=== PATIENT | female | born 1940 | race Caucasian/White ===

== ENCOUNTER → 2017-01-17 | Outpatient (CLI) | payer MEDICARE ==
--- NOTE | 2017-01-17 09:31 | RAD ---
Indication breast malignancy. Protocol study. Frontal and lateral views of the chest were obtained. No prior imaging of the chest is available. The heart, pulmonary vessels and mediastinum appear normal. The lungs are clear. There is no pleural fluid or pneumothorax. Changes of a left mastectomy are noted. Bony structures appear grossly intact. IMPRESSION: No acute or focal process seen in the chest
--- NOTE | 2017-01-17 14:02 | RAD ---
Indication history of breast malignancy. Left ankle pain for several months associated with an injury. Whole body static images were obtained. 25 mCi of technetium labeled MDP was administered. No prior bone scan imaging is available. No extremity plain films are available. There is increased activity in the hands which is likely degenerative. Similarly increased activity is seen in the lower lumbar spine likely degenerative. Increased activity in the left knee medially also is likely degenerative. There are foci of increased activity in the left foot and ankle. These would be compatible with the history of trauma provided and may be sales representative meats of fractures or bone contusions. Correlation with plain films advised. The study is negative for metastatic disease. Normal activity is seen in the kidneys and urinary bladder. IMPRESSION: Negative study for bony metastatic disease. Multiple areas of increased uptake compatible with degenerative disease. Increased activity in the left fifth metatarsal phalangeal area and in the left ankle which would be compatible with the history of trauma provided. Findings may represent bone contusions or fractures. Correlation with plain films advised
--- NOTE | 2017-01-17 15:49 | RAD ---
DATE: 01/17/2017 EXAM: MAMMO LORNA DIAG RT HISTORY: Screening. The history of left breast malignancy is noted. COMPARISON: 12/28/2015 This study was interpreted with the benefit of Computerized Aided Detection (CAD). FINDINGS: Breast Density: HETERO The breast parenchyma Is heterogeneiously dense, which could reduce sensitivity of mammography. Breast parenchyma level C. There has not been a significant change in the appearance of the breasts compared to the previous exam IMPRESSION: Benign findings right breast BI-RADS CATEGORY: 2 BENIGN FINDING(S) RECOMMENDED FOLLOW-UP: 12M 12 MONTH FOLLOW-UP PQRS compliance statement: Patient information was entered into a reminder system with a target due date 01/17/2018 for the next mammogram. Mammography is a sensitive method for finding small breast cancers, but it does not detect them all and is not a substitute for careful clinical examination. A negative mammogram does not negate a clinically suspicious finding and should not result in delay in biopsying a clinically suspicious abnormality. "Our facility is accredited by the [employer] Mammography Program."
== END | disposition home or self-care (01) ==
LOC: NM 08:54
PROVIDERS: ATTEND Family Medicine
DX: C50.912 Malignant neoplasm of unspecified site of left female breast (principal); M25.572 Pain in left ankle and joints of left foot; D50.9 Iron deficiency anemia, unspecified; Z85.3 Personal history of malignant neoplasm of breast; X58.XXXD Exposure to other specified factors, subsequent encounter
CPT/HCPCS: 71020; 78306; 96374; A9503; G0206; G0279; 77061; 77065

== ENCOUNTER → 2019-03-18 | Outpatient (CLI) | payer MEDICARE ==
[~2019-03-18] MED LIST: ATEN1TAB3 PO; LEVO200T5 PO; POTA20TA82 PO; SULF-143 PO; TAMO20TA PO
--- NOTE | 2019-03-18 18:45 | RAD ---
Study: ABDOMEN SUPINE UPRIGHT Indication: Right flank pain. Comparison: None. Findings: Nonobstructed bowel gas pattern with an overall paucity of bowel gas. No free air seen. Scattered pelvic phleboliths. Approximately 4 mm focus of mineralization seen in the right upper quadrant projecting over the tip of the right 12th rib which could represent an intrarenal nephrolithiasis though its location is uncertain. The lung bases are clear. Impression: 1. Nonobstructive bowel gas pattern. No free air. 2. At the right upper quadrant projecting over the tip of the 12th rib, a 4 mm focus of mineralization is identified. The location of this is uncertain but conceivably could represent an intrarenal nephrolithiasis. Electronically signed by: JUAN DIEGO FRAUSTO MD (03/18/2019 6:42 PM) [facility]
== END | disposition home or self-care (01) ==
LOC: DXRAD 17:59
PROVIDERS: ATTEND Family Medicine
DX: I87.8 Other specified disorders of veins (principal); R10.9 Unspecified abdominal pain
CPT/HCPCS: 74019

== ENCOUNTER 2019-03-24 11:44 | Inpatient (IN) | payer MEDICARE ==
[~2019-03-24] VITALS: Ht 165.1 cm; Wt 64.4 kg
[2019-03-24] MEDS ORDERED: IV NORMAL SALINE 1,000ML 1,000 ML IV ONE ×2 (12:00→13:30)
--- NOTE | 2019-03-24 12:03 | PHYS DOC ---
Past History Past Medical History: Cancer, Hypothyroid, Kidney Stones, UTI Past Surgical History: Appendectomy, Cholecystectomy Alcohol Use: None Drug Use: None Adult General Chief Complaint Chief Complaint: OTHER COMPLAINTS HPI HPI 79-year-old female presents to the emergency department with complaints of chills, fever, weakness. Patient states she started with back pain last Friday, was seen by her primary care physician on and diagnosed with urinary tract infection and found to have kidney stones. Patient was given Bactrim. She was seen in the ER on Friday for dehydration, provided IV fluids. Patient denies any nausea or vomiting, denies any chest pain or shortness of breath. Given her continued symptoms she presents to the ER for further evaluation Review of Systems Review of Systems Constitutional: fever or chills [] Eyes: Denies change in visual acuity, redness, or eye pain [] HENT: Denies nasal congestion or sore throat [] Respiratory: Denies cough or shortness of breath [] Cardiovascular: No additional information not addressed in HPI [] GI: Denies abdominal pain, nausea, vomiting, bloody stools or diarrhea [] : Denies dysuria or hematuria [] Musculoskeletal: Back pain Integument: Denies rash or skin lesions [] Neurologic: Denies headache, focal weakness or sensory changes [] All other systems were reviewed and found to be within normal limits, except as documented in this note. Current Medications Current Medications Current Medications Medications (Trade) Dose Ordered Sig/Óscar Start Time Stop Time Status Last Admin Dose Admin Sodium Chloride 1,000 ml @ 1,000 mls/hr 1X ONCE 03/24/19 12:00 03/24/19 12:59 UNV Allergies Allergies Allergies Coded Allergies Type Severity Reaction Last Updated Verified No Known Drug Allergies 03/24/19 No Physical Exam Physical Exam Constitutional: Well developed, well nourished, no acute distress, non-toxic appearance. [] HENT: Normocephalic, atraumatic, bilateral external ears normal, oropharynx moist, no oral exudates, nose normal. [] Eyes: PERRLA, EOMI, conjunctiva normal, no discharge. [] Cardiovascular:Heart rate regular rhythm, no murmur [] Lungs & Thorax: Bilateral breath sounds clear to auscultation [] Abdomen: Bowel sounds normal, soft, no tenderness, no masses, no pulsatile masses. [] Skin: Warm, dry, no erythema, no rash. [] Back: No tenderness, no CVA tenderness. [] Extremities: No tenderness, no cyanosis, no clubbing, no edema. [] Neurologic: Alert and oriented X 3, no focal deficits noted. [] Psychologic: Affect normal, judgement normal, mood normal. [] Current Patient Data Vital Signs Vital Signs Date Time Temp Pulse Resp B/P (MAP) Pulse Ox O2 Delivery O2 Flow Rate FiO2 03/24/19 11:44 98.2 67 16 97 Room Air EKG EKG EKG reviewed 1202, no evidence of acute ST elevation, she does have T-wave inversion appreciated V1.[] Radiology/Procedures Radiology/Procedures [] Course & Med Decision Making Course & Med Decision Making Pertinent Labs and Imaging studies reviewed. (See chart for details) []79-year-old female presents to the emergency department with complaints of chills, fever, weakness. Patient states she started with back pain last Friday, was seen by her primary care physician on and diagnosed with urinary tract infection and found to have kidney stones. Patient was given Bactrim. She was seen in the ER on Friday for dehydration, provided IV fluids. Patient denies any nausea or vomiting, denies any chest pain or shortness of breath. Given her continued symptoms she presents to the ER for further evaluation. Labs reviewed with evidence of LOUIS, hyperkalemia. UA with EBC 20- 40 and LE, Rocephin 1gm IV given Dragon Disclaimer Dragon Disclaimer This electronic medical record was generated, in whole or in part, using a voice recognition dictation system. Departure Departure: Impression: Primary Impression: Acute kidney injury Additional Impressions: Hyperkalemia Weakness UTI (urinary tract infection) Disposition: ADMITTED INPATIENT Admitting Physician: Kit Mendez Condition: STABLE Referrals: KHANG TINEO MD (PCP) Problem Qualifiers Additional Impressions: UTI (urinary tract infection) Urinary tract infection type: site unspecified Hematuria presence: without hematuria Qualified Codes: N39.0 - Urinary tract infection, site not sp ecified MARIA ESTHER BARRAZA MD Mar 24, 2019 12:03
[2019-03-24 12:19] LABS: BASO # 0.1 x10^3/uL (0.0-0.2); BASO % 1 % (0-3); EOS # 0.1 x10^3/uL (0.0-0.7); EOS % 2 % (0-3); HEMATOCRIT 33.1 % (36.0-47.0); LYMPH # 1.8 x10^3/uL (1.0-4.8); LYMPH % 21 % (24-48); MEAN CORPUSCULAR HEMOGLOBIN 31 pg (25-35); MEAN CORPUSCULAR HGB CONC 33 g/dL (31-37); MEAN CORPUSCULAR VOLUME 94 fL (79-100); MONO # 0.9 x10^3/uL (0.0-1.1); MONO % 11 % (0-9); NEUT # 5.8 x10^3uL (1.8-7.7); NEUT % 66 % (31-73); PLATELET COUNT 245 x10^3/uL (140-400); RED BLOOD COUNT 3.53 x10^6/uL (3.50-5.40); RED CELL DISTRIBUTION WIDTH 13.4 % (11.5-14.5); WHITE BLOOD COUNT 8.7 x10^3/uL (4.0-11.0)
[2019-03-24 12:33] LABS: ALBUMIN 2.7 g/dL (3.4-5.0); ALBUMIN/GLOBULIN RATIO 0.7 (1.0-1.7); CALCIUM 8.6 mg/dL (8.5-10.1); CREATININE 2.9 mg/dL (0.6-1.0); GFR 15.6; MAGNESIUM 2.1 mg/dL (1.8-2.4); POTASSIUM 5.3 mmol/L (3.5-5.1); TOTAL BILIRUBIN 0.2 mg/dL (0.2-1.0); TOTAL PROTEIN 6.6 g/dL (6.4-8.2)
--- NOTE | 2019-03-24 12:35 | RAD ---
CHEST AP ONLY Clinical Indication: Cough Comparison: 01/17/2017 two-view chest x-ray exam. Findings: Portable upright frontal view chest was obtained. The cardiomediastinal silhouette is normal. Minimal left basilar atelectasis discoid is present. No suspicious infiltrate. There is no pneumothorax. No pleural effusion is appreciated. No acute bone abnormality. IMPRESSION: No suspicious acute cardiopulmonary process. Electronically signed by: Jeff Maravilla MD (03/24/2019 12:32 PM) [facility]
[2019-03-24] MEDS ORDERED: ONDANSETRON PF 4 MG/2 ML VIAL. IV PRN (13:30)
[2019-03-24 13:35] LABS: CLARITY,URINE HAZY; COLOR,URINE YELLOW
[2019-03-24 13:36] LABS: BACTERIA,URINE FEW /HPF (0-FEW); BILIRUBIN,URINE NEG (NEG); GLUCOSE,URINE NEG (NEG); NITRITE,URINE NEG (NEG); SQUAMOUS EPITHELIAL CELL,UR OCC /LPF; UROBILINOGEN,URINE 0.2 mg/dL (0.2 mg/dL); WBC,URINE 20-40 /HPF (0-4)
--- NOTE | 2019-03-24 14:22 | EKG ---
[address] [address] Test Date: 2019-03-24 Test Time: 11:59:34 Pat Name: TRUPTI KIRK Department: Room: Gender: F [employer]: LINSEY : 1940 Requested By: MARIA ESTHER BARRAZA Order Number: [id number] Reading MD: Measurements Intervals [place] Rate: 66 P: 66 CA: 156 QRS: 52 QRSD: 90 T: 38 QT: 402 QTc: 423 Interpretive Statements SINUS RHYTHM QRS(T) CONTOUR ABNORMALITY CONSIDER ANTEROLATERAL MYOCARDIAL DAMAGE POSSIBLY ABNORMAL ECG RI6.01 No previous ECG available for comparison
[2019-03-24 16:04] VITALS: BP 113/67
[2019-03-24] MEDS ORDERED: POTA20TA82 PO (16:48)
[2019-03-24] MEDS ORDERED: ATEN1TAB3 PO (16:48)
[2019-03-24] MEDS ORDERED: TAMO20TA PO (16:48)
[2019-03-24] MEDS ORDERED: SULF-143 PO (16:48)
[2019-03-24] MEDS ORDERED: LEVO200T5 PO (16:48)
[2019-03-24] MEDS: IV NORMAL SALINE 1,000ML 1,000 ML IV SCH (18:12)
[2019-03-24 18:44] VITALS: BP 119/71
--- NOTE | 2019-03-24 19:00 | RAD ---
CT scan of the abdomen and pelvis without contrast 03/24/2019 CLINICAL HISTORY: Possible renal calculus seen on the recent abdominal radiograph. Abdominal pain. TECHNIQUE: Unenhanced, contiguous, 3 mm axial sections were obtained through the abdomen and pelvis. One or more of the following individualized dose reduction techniques were utilized for this study: 1. Automated exposure control. 2. Adjustment of the mA and/or kV according to patient size. 3. Use of iterative reconstruction technique. FINDINGS: Comparison is made to two-view abdomen radiographs dated 03/18/2019. Images through the lung bases demonstrate dependent subsegmental atelectasis, right greater than left. The liver, spleen, pancreas, and adrenal glands are within normal limits. No renal calculus is seen. The right kidney is mildly enlarged. Mild dilatation of the right ureter is seen throughout its course. Best seen on the sagittal reconstructed images, a 3 mm calcific density is seen in the expected location of distal right ureter at the level of the right UVJ which appears represent a distal right ureteral calculus causing mild obstruction of the right collecting system. There is no evidence of obstruction of the left collecting system. Atherosclerotic calcification of the abdominal aorta and its branches is seen. The abdominal aorta tapers normally. The gallbladder is not visualized and is presumably surgically absent. No free fluid or free air is seen within the abdomen. There is no evidence of bowel obstruction. Images through the pelvis demonstrate the urinary bladder distended with urine. Calcifications are seen within the pelvis consistent with phleboliths. Very mild S-shaped curvature of the thoracolumbar spine is seen. Degenerative changes are seen involving the lower thoracic and throughout the lumbar spine and both hips. IMPRESSION: 3 mm distal right ureteral calculus is seen at the level of the right UVJ which is causing mild obstruction of the right collecting system. Electronically signed by: Jose Angel Harrington MD (03/24/2019 6:58 PM) [facility]
--- NOTE | 2019-03-24 21:41 | HP ---
ADMIT DATE: 03/24/2019 HISTORY OF PRESENT ILLNESS: The patient is an 79-year-old female patient who came to the Emergency Department with complaints of chills, fever, weakness. She stated that her complaint started by back pain last Friday. She was seen by her primary care physician on , diagnosed her with urinary tract infection and found to have a kidney stone. She was given Bactrim. She was seen in the Emergency Room on Friday for dehydration. She was given IV fluid. At that time, she was noted to have hypokalemia. She was given a prescription for potassium. However, despite taking Bactrim religiously, she did not really feel any better. She continued to have complaining of weakness and poor appetite and therefore she came back to the Emergency Room of [facility] where she was extensively evaluated. Her lab work showed that she has hyperkalemia as well as acute kidney injury. Unfortunately, I do not have any other value to compare with, but presumably her kidney functions were normal before. She was started on IV Rocephin and IV fluid. We will arrange for her to have a CT scan of the abdomen without contrast to make sure she does not have any bilateral hydronephrosis and we will monitor her labs closely. We will contact the ____ hospital to get any copies of her previous lab work to compare to see whether this is a chronic or acute on chronic kidney injury. PAST MEDICAL HISTORY: Significant for hypothyroidism, hypertension, has a history of breast cancer and nephrolithiasis. PAST SURGICAL HISTORY: Significant for total thyroidectomy, appendectomy, cholecystectomy, bilateral cataract extraction, tonsillectomy, total abdominal hysterectomy, bilateral salpingo-oophorectomy. She has also left side mastectomy for breast cancer. FAMILY HISTORY: She is the only child. She has no brothers or sisters. Her father at the age of 76 because of myocardial infarction. Mother in her 80s because of cancer. SOCIAL HISTORY: Her grandson lives with her. She has 2 daughters and 1 son. She is a former smoker, smoked in her 20s as well as she used to drink alcohol, but long time ago. 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 REVIEW OF SYSTEMS: The patient denied any blurring of vision, cataract, glaucoma or macular degeneration. Denied any earache, tinnitus or sensorineural deafness. Denied any nosebleeds, stuffy nose or postnasal drip. Denied any sore throat, sore tongue, toothache, hoarseness of voice or difficulty swallowing. Denied any nausea, vomiting, diarrhea or constipation. Denied any hematemesis, melena or hematochezia. Denied any dysuria, frequency or hematuria. Denied any chest pain, shortness of breath, orthopnea, paroxysmal nocturnal dyspnea. Denied any cough, phlegm or hemoptysis. Denied any chills, rigors, or fever. Denied any dizziness, lightheadedness, or vertigo. PHYSICAL EXAMINATION: GENERAL: On arrival to the Emergency Room, she looked pale, but no jaundice, cyanosis or thyromegaly. No jugular venous distention. No limb edema. VITAL SIGNS: Her heart rate was 67, blood pressure was 108/43, temperature was 98.2, respiratory rate was 16, and oxygen saturation was 97%. HEAD, EYES, EARS, NOSE AND THROAT: Normocephalic, atraumatic. NECK: Supple. HEART: Showed normal first and second heart sounds with no gallop or murmur. CHEST: Clear to auscultation. No crepitation or rhonchi. ABDOMEN: Distended, soft, nontender. No guarding or rigidity. No organomegaly. All hernial orifices intact. Bowel sounds normal. NEUROLOGICAL: She is awake, alert, responding appropriately. All cranial nerves intact. EXTREMITIES: She moves extremities without difficulty. She ambulates without assistance or assistive devices. LABORATORY WORK: On arrival showed a white cell count of 8700, hemoglobin 11, hematocrit 33, MCV 94 and platelet count 245,000. Her serum sodium was 134, potassium 5.3, chloride 101, bicarbonate 24, anion gap of 9, BUN 27, creatinine 2.9, estimated GFR was 15 mL per minute. Her glucose was 110, calcium was 8.6. Lactic acid was 1.9, magnesium 2.1. Total bilirubin, AST, ALT, alkaline phosphatase were normal. Total protein was 6.6, albumin 2.7. Her chest x-ray showed that the cardiomediastinal silhouette is normal. Minimal left basilar atelectasis, discoid is present. No suspicious infiltrate. There is no pneumothorax. No pleural effusion is appreciated. No acute bony abnormalities. ASSESSMENT AND PLAN: The patient was admitted with acute kidney injury and hyperkalemia, questionable Bactrim induced interstitial nephritis, although there is no eosinophilia. She has had x-ray done last which showed that she has renal stone, so obviously obstruction is a possibility. My plan is to continue with IV antibiotic. Continue with IV fluid. I will obviously discontinue Bactrim. I will hold her atenolol and hydrochlorothiazide as well as potassium. Continue with tamoxifen and levothyroxine. We will monitor her lab work closely and decide further management accordingly. ANNALISE BURROUGHS MD DR: OSCAR/sergei JOB#: [id number] / [id number]
[2019-03-24 22:51] VITALS: BP 103/62
[2019-03-25 05:07] VITALS: BP 109/65
[2019-03-25] MEDS: IV NORMAL SALINE 1,000ML 1,000 ML IV SCH ×2 (05:15→15:15)
[2019-03-25] MEDS: Levothyroxine Sodium 200 MCG PO SCH (06:12)
[2019-03-25 06:34] LABS: BASO # 0.1 x10^3/uL (0.0-0.2); BASO % 1 % (0-3); EOS # 0.1 x10^3/uL (0.0-0.7); EOS % 1 % (0-3); HEMATOCRIT 31.8 % (36.0-47.0); HEMOGLOBIN 10.7 g/dL (12.0-15.5); LYMPH # 1.7 x10^3/uL (1.0-4.8); LYMPH % 19 % (24-48); MEAN CORPUSCULAR HEMOGLOBIN 32 pg (25-35); MEAN CORPUSCULAR HGB CONC 34 g/dL (31-37); MEAN CORPUSCULAR VOLUME 94 fL (79-100); MONO # 0.7 x10^3/uL (0.0-1.1); MONO % 8 % (0-9); NEUT # 6.6 x10^3uL (1.8-7.7); NEUT % 72 % (31-73); PLATELET COUNT 258 x10^3/uL (140-400); RED BLOOD COUNT 3.39 x10^6/uL (3.50-5.40); RED CELL DISTRIBUTION WIDTH 13.6 % (11.5-14.5); WHITE BLOOD COUNT 9.3 x10^3/uL (4.0-11.0)
[2019-03-25 06:48] LABS: ALBUMIN 2.3 g/dL (3.4-5.0); ALBUMIN/GLOBULIN RATIO 0.6 (1.0-1.7); CALCIUM 7.8 mg/dL (8.5-10.1); CREATININE 2.3 mg/dL (0.6-1.0); GFR 20.4; POTASSIUM 5.1 mmol/L (3.5-5.1); TOTAL BILIRUBIN 0.3 mg/dL (0.2-1.0); TOTAL PROTEIN 5.9 g/dL (6.4-8.2)
[2019-03-25] MEDS: TAMOXIFEN CITRATE 20 MG PO SCH (07:52)
[2019-03-25] MEDS: LACTOBACILLUS RHAMNOSUS GG 1 CAPSULE. PO SCH ×2 (09:18→20:46)
[2019-03-25 11:06] VITALS: BP 114/69
[2019-03-25 14:49] VITALS: BP 134/74
[2019-03-25] MEDS ORDERED: CALCIUM CARBONATE 500 MG TAB.CHEW PO PRN (18:30)
[2019-03-25 20:24] VITALS: BP 119/67
[2019-03-25] MEDS: TAMSULOSIN 0.4 MG CAP.ER.24H. PO SCH (20:46)
--- NOTE | 2019-03-25 23:37 | PN ---
DATE: 03/25/2019 SUBJECTIVE: The patient is resting, slightly propped up in bed, no apparent distress. She is feeling generally better. She has eaten more. She has been afebrile throughout her stay here. Blood pressure is normal. Her kidney function, her serum potassium is down from 5.3-5.1. Creatinine is down from 2.9 to 2.3. PHYSICAL EXAMINATION: GENERAL: When I examined her, she looked pale, but no jaundice, cyanosis or thyromegaly. No jugular venous distention. No limb edema. VITAL SIGNS: Her heart rate was 68, blood pressure was 114/69, temperature was 97.7, respiratory rate was 20, and oxygen saturation was 98%. HEAD, EYES, EARS, NOSE AND THROAT: Showed normocephalic, atraumatic. NECK: Supple. HEART: Showed normal first and second heart sounds. No gallop or murmur. CHEST: Clear to auscultation. No crepitation or rhonchi. ABDOMEN: Distended, soft, nontender. NEUROLOGIC: She was awake, alert, responding appropriately. All cranial nerves intact. She moves extremities without difficulty. She ambulates without assistance or assistive devices. Her intake over the last 24 hours was 2614, no output was recorded. LABORATORY DATA: Her lab work this morning showed her serum sodium 138, potassium 5.1, chloride 107, bicarbonate 20, anion gap of 11, BUN 20, creatinine 2.3, estimated GFR was 20 mL per minute. Her glucose was 81, calcium was 7.8. Total bilirubin, AST, ALT, alkaline phosphatase were normal. Total protein 5.9, albumin 2.3. Her white cell count was 9300, hemoglobin 11, hematocrit 32, MCV 94 and platelet count 258,000. Urinalysis showed the urine was negative for nitrite, small amount of leukocyte esterase, 1-2 rbc's, more than 20-40 wbc's and very few bacteria. ASSESSMENT: 1. Acute kidney injury versus acute on chronic kidney injury, likely due to acute interstitial nephritis due to Bactrim. There is also an element of dehydration, also she is on chlorthalidone as well as potassium, so I discontinued her Bactrim. I discontinued her atenolol and chlorthalidone as well as potassium. 2. Other medical problems including hypertension seems to be well controlled. 3. Hypothyroidism. She is both clinically and by biochemically euthyroid. We did a CT scan of the abdomen and pelvis, which showed that she has a 3 mm distal right ureteral calculus is seen at the level of the right, which is causing mild obstruction of the right collecting system. There is no evidence of obstruction of the left collecting system. She has atherosclerotic calcification of the abdominal aorta and its branches is seen. The abdominal aorta tapers normally. The gallbladder is not visualized and is presumably surgically absent. No free fluid or free air is seen within the abdomen. There is no evidence of bowel obstruction. She had degenerative changes seen involving the lower thoracic and throughout the lumbar spine. PLAN: My plan is to continue with IV fluid, continue with antibiotic. I will add Flomax and we will follow. We might have to repeat CT scan tomorrow to make sure that she has passed her stone. We will also strain her urine. ANNALISE BURROUGHS MD DR: OSCAR/sergei JOB#: [id number] / [id number]
[2019-03-26 00:22] VITALS: BP 115/66
[2019-03-26] MEDS: IV NORMAL SALINE 1,000ML 1,000 ML IV SCH ×3 (00:28→15:05)
[2019-03-26] MEDS: Levothyroxine Sodium 200 MCG PO SCH (05:29)
[2019-03-26 06:08] VITALS: BP 122/68
[2019-03-26 06:50] LABS: ALBUMIN 2.5 g/dL (3.4-5.0); ALBUMIN/GLOBULIN RATIO 0.7 (1.0-1.7); CALCIUM 7.9 mg/dL (8.5-10.1); GFR 23.9; HEMATOCRIT 31.7 % (36.0-47.0); HEMOGLOBIN 10.6 g/dL (12.0-15.5); POTASSIUM 4.4 mmol/L (3.5-5.1); RED BLOOD COUNT 3.38 x10^6/uL (3.50-5.40); RED CELL DISTRIBUTION WIDTH 13.2 % (11.5-14.5); TOTAL BILIRUBIN 0.4 mg/dL (0.2-1.0); TOTAL PROTEIN 6.1 g/dL (6.4-8.2)
[2019-03-26] MEDS: LACTOBACILLUS RHAMNOSUS GG 1 CAPSULE. PO SCH ×2 (07:59→20:03)
[2019-03-26] MEDS: TAMOXIFEN CITRATE 20 MG PO SCH (08:00)
[2019-03-26 10:42] VITALS: BP 108/64
[2019-03-26 14:54] LABS: CREATININE 2.1 mg/dL (0.6-1.0); GFR 22.6; POTASSIUM 4.6 mmol/L (3.5-5.1)
[2019-03-26 15:14] VITALS: BP 136/70
--- NOTE | 2019-03-26 15:18 | RAD ---
Examination: CT ABDOMEN PELVIS WO CONTRAST History: Hydronephrosis, acute kidney injury Comparison/Correlation: 03/24/2019 CT abdomen and pelvis without contrast Findings: Axial images of the abdomen and pelvis were obtained without contrast. Sagittal and coronal reformatted images were provided. Left mastectomy noted. Very small bibasilar pleural effusions are present. Liver, spleen, pancreas, and adrenal glands are normal. Gallbladder is not visualized.. No radiopaque calculi within the collecting systems noted. No hydronephrosis. Moderate left renal atrophy. Moderate quantity of stool in the colon noted. No extraluminal gas. No ascites or pelvic free fluid. Urinary bladder is unremarkable. Bilateral L5 pars interarticularis fractures are present. Grade 2 anterolisthesis of L5 over S1 is noted. Impression: No hydronephrosis or radiopaque collecting system calculi. Moderate left renal cortical atrophy. Bilateral L5 pars interarticularis fractures with Grade 2 anterolisthesis of L5 over S1. PQRS Compliance Statement: One or more of the following individualized dose reduction techniques were utilized for this examination: 1. Automated exposure control 2. Adjustment of the mA and/or kV according to patient size 3. Use of iterative reconstruction technique Electronically signed by: Jeff Maravilla MD (03/26/2019 3:15 PM) [facility]
[2019-03-26 19:09] VITALS: BP 127/76
[2019-03-26] MEDS: TAMSULOSIN 0.4 MG CAP.ER.24H. PO SCH (20:03)
[2019-03-26 20:08] LABS: CALCIUM PTH 7.8 mg/dL (8.7-10.3); CREATININE PTH 1.87 mg/dL (0.57-1.00); PTH INTACT 51 pg/mL (15-65)
[2019-03-26 23:04] VITALS: BP 148/94
--- NOTE | 2019-03-26 23:15 | PN ---
DATE: 03/26/2019 SUBJECTIVE: The patient is sitting comfortably in her chair, in no apparent distress. She denied any abdominal pain. Denied any nausea, vomiting, chills, rigors or fever. PHYSICAL EXAMINATION: GENERAL: When I examined her, she looked well and was clearly in no apparent respiratory distress, slightly pale. Jaundice, cyanosis or thyromegaly. No jugular venous distention. No lower limb edema. VITAL SIGNS: Her heart rate was 75, blood pressure was 108/64, temperature was 98, respiratory rate was 20, and oxygen saturation was 96%. HEAD, EYES, EARS, NOSE AND THROAT: Showed normocephalic, atraumatic. NECK: Supple. HEART: Showed normal first and second heart sounds. No gallop or murmur. CHEST: Clear to auscultation. No crepitation or rhonchi. ABDOMEN: Distended, soft, nontender. No guarding or rigidity. No organomegaly. All hernial orifices intact. Bowel sounds normal. NEUROLOGIC: She is awake, alert, responding appropriately. All cranial nerves intact. She moves extremities without difficulty. She ambulates without assistance or assistive devices. Her intake was 3100, output 1550. LABORATORY DATA: As of this morning, her white cell count was 10,000, hemoglobin 10, hematocrit 31, MCV 94 and platelet count 301,000. Her chemistry showed a serum sodium 138, potassium 4.4, chloride 105, bicarbonate 22, anion gap of 11, BUN of 13, creatinine was 2. Estimated GFR was 24 mL per minute. Her glucose was 89, calcium was 7.9. Total bilirubin, AST, ALT, alkaline phosphatase were normal. Total protein was 6.1, albumin was 2.5. Her urine culture and sensitivity have shown less than 10,000 colony forming units per mL of bacteria, felt to be clinically insignificant. PLAN: To arrange for another CT scan of the abdomen and pelvis without contrast and continue with IV fluid. Repeat her lab work tomorrow, and if she continued to have obstruction, we will probably have to transfer her to [facility] to have cystoscopy and a stent placement. ANNALISE BURROUGHS MD DR: OSCAR/sergei JOB#: [id number] / [id number]
[2019-03-27] MEDS: IV NORMAL SALINE 1,000ML 1,000 ML IV SCH (02:39)
[2019-03-27 05:04] VITALS: BP 144/73
[2019-03-27] MEDS: Levothyroxine Sodium 200 MCG PO SCH (05:37)
[2019-03-27] MEDS: TAMOXIFEN CITRATE 20 MG PO SCH (08:02)
[2019-03-27] MEDS: LACTOBACILLUS RHAMNOSUS GG 1 CAPSULE. PO SCH (08:02)
[2019-03-27 10:48] VITALS: BP 143/83
[2019-03-27 11:39] LABS: CALCIUM 7.9 mg/dL (8.5-10.1); CREATININE 1.7 mg/dL (0.6-1.0); GFR 28.8; POTASSIUM 4.3 mmol/L (3.5-5.1)
--- NOTE | 2019-03-27 12:16 | DS ---
DATE OF DISCHARGE: 03/27/2019 HOSPITAL COURSE: The patient is an 79-year-old female patient who was admitted with a complaint of generalized weakness, poor appetite and she came to the Emergency Room of [facility] where she was extensively evaluated. Her lab work showed that she had hyperkalemia as well as acute kidney injury and therefore we did start her on IV Rocephin, IV fluid. We did a CT scan of the abdomen without contrast, which basically showed that she had 3 mm distal right ureteral calculus, was seen at the level of the right ureterovesical junction, which was causing mild obstruction of the right collecting system. I did add Flomax and continued IV antibiotic. Her kidney function has steadily improved. In fact her creatinine on arrival was 2.9, down to 1.7. A repeat CT scan showed that she passed a stone. There was no further hydronephrosis, radiopaque collecting system and therefore a decision was made to discharge her home. I did recommend that she should discontinue the hydrochlorothiazide as well as the potassium. Her intact PTH was normal at 51 with normal range of the parathyroid hormone at 15-65, ruling out the possibility of primary hyperparathyroidism. PHYSICAL EXAMINATION: GENERAL: When I saw her this afternoon, she looked well and was clearly in no apparent respiratory distress, slightly pale. No jaundice, cyanosis, or thyromegaly. No jugular venous distension. No lower limb edema. VITAL SIGNS: Her heart rate was 86, blood pressure 143/83, temperature was 97.5, respiratory rate 20 and oxygen saturation was 99% on room air. HEAD, EYES, EARS, NOSE AND THROAT: Showed normocephalic, atraumatic. NECK: Supple. HEART: Showed normal first and second heart sounds. No gallop, rub or murmur. CHEST: Clear to auscultation. No crepitation or rhonchi. ABDOMEN: Distended, soft, nontender. No guarding or rigidity. No organomegaly. All hernial orifices intact. Bowel sounds normal. NEUROLOGIC: She was awake, alert, responding appropriately. All cranial nerves intact. She moves extremities without difficulty. She ambulates without assistance or assistive devices. Her intake was 2400, output was 2500. LABORATORY DATA: This morning showed serum sodium 137, potassium 4.3, chloride 105, bicarbonate 21, anion gap of 11, BUN 12, creatinine was 1.7, estimated GFR was 29 mL per minute. Her glucose 111, calcium was 7.9. Her urine culture showed growth of less than 10,000 colony forming units of bacteria per mL of urine. This colony count is not generally considered to be clinically significant. DISCHARGE MEDICATIONS: She was discharged home to continue on levothyroxine 200 mcg once a day, tamoxifen citrate 20 mg once a day and atenolol 50 mg once a day. I discontinued the hydrochlorothiazide, potassium chloride as well as sulfamethoxazole and trimethoprim. FINAL DISCHARGE DIAGNOSES: 1. Acute kidney injury, resolving. 2. Hyperkalemia, resolved. 3. A 3 mm distal right ureteral calculus with mild hydronephrosis, resolved. The patient apparently has passed the stone on her own. 4. Other medical problems include hypertension and breast cancer, for which she is on tamoxifen. ANNALISE BURROUGHS MD DR: OSCAR/sergei JOB#: [id number] / [id number]
== END 2019-03-27 12:20 | disposition home or self-care (01) | DRG 682 ==
LOC: ER 11:44 → 1 SOUTH 14:00
PROVIDERS: ADMIT Internal Medicine; ATTEND Internal Medicine
DX: N17.9 Acute kidney failure, unspecified (principal); E43 Unspecified severe protein-calorie malnutrition; N13.6 Pyonephrosis; E87.5 Hyperkalemia; I10 Essential (primary) hypertension; E86.0 Dehydration; E89.0 Postprocedural hypothyroidism; Z98.42 Cataract extraction status, left eye; Z98.41 Cataract extraction status, right eye; Z90.49 Acquired absence of other specified parts of digestive tract; Z90.710 Acquired absence of both cervix and uterus; Z87.891 Personal history of nicotine dependence; Z87.442 Personal history of urinary calculi; Z85.3 Personal history of malignant neoplasm of breast; Z82.49 Family history of ischemic heart disease and other diseases of the circulatory system; Z79.810 Long term (current) use of selective estrogen receptor modulators (SERMs); Z68.23 Body mass index [BMI] 23.0-23.9, adult
CPT/HCPCS: 36415; 71045; 74176; 80048; 80053; 81001; 83605; 83735; 83970; 84484; 85025; 85027; 87086; 93005; 96360; J0696; 97110; 97535; 99285-25; J7030

== ENCOUNTER → 2020-01-25 | Outpatient (CLI) | payer MEDICARE ==
[~2020-01-25] MED LIST changes: +POTA20TA4 PO; -POTA20TA82 PO
--- NOTE | 2020-01-25 18:00 | RAD ---
Examination: MAMMO LORNA SCREEN RT History: Annual screening. Left mastectomy. COMPARISON/CORRELATION: 01/17/2017, 12/16/2014, 08/06/2013 Technique: Screening right unilateral digital mammogram views were obtained. CAD was utilized. 3-D tomosynthesis images were acquired. Findings: Breast Tissue Density C : The breasts are heterogeneously dense, which may obscure small masses. There are no dominant masses, suspicious microcalcifications, or architectural distortion. IMPRESSION: No mammographic evidence of malignancy. Recommend routine screening. BI-RADS category 1: Negative. The images were reviewed with computer aided detection. Patient information is entered into the reminder system with a target due date for the next screening mammogram. Mammography is the most sensitive method for finding small breast cancers, but it does not detect them all and is not a substitute for careful clinical examination. A negative mammogram does not negate a clinically suspicious finding and should not result in delay in biopsying a clinically suspicious abnormality. "Our facility is accredited by the [employer] Mammography Program Electronically signed by: Jeff Maravilla MD (01/25/2020 5:57 PM) [id number]
== END ==
LOC: MAMMO 09:51
PROVIDERS: ATTEND Family Medicine
DX: Z12.31 Encounter for screening mammogram for malignant neoplasm of breast (principal); Z85.3 Personal history of malignant neoplasm of breast; Z90.12 Acquired absence of left breast and nipple
CPT/HCPCS: 77063; 77067